=== PATIENT | male | born 1990 | race Caucasian/White ===

== ENCOUNTER 2019-09-27 19:08 | Emergency (ER) | payer BC, SELFPAY ==
--- NOTE | ~2019-09-27 | XR_ITS ---
EXAMINATION: XR abdomen/kub 1V INDICATION: Bilateral flank pain TECHNIQUE: Supine views of the abdomen were obtained on 2 radiographs. COMPARISON: CT from today FINDINGS: A 13 mm stone projects in the expected location of the right renal pelvis at the level of t he L2 transverse process. There is an 8 mm stone in the left kidney lower pole. Punctate calcificatio ns of the right kidney measure up to 3 mm. No stones are identified along the expected courses of the ureters or within the urinary bladder. The bowel gas pattern is normal. IMPRESSION: 1. 13 mm stone in the right renal pelvis. 2. Bilateral nephrolithiasis. Reviewed, dictated and finalized at location A. 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
--- NOTE | ~2019-09-27 | CT_ITS ---
EXAMINATION: CT abdomen pelvis wo con DATE: 09/27/2019 20:06 INDICATION: Right flank pain and hematuria TECHNIQUE: Computed tomography (CT) of the abdomen and pelvis was performed without intravenous contr ast. The dose-length product (DLP) was 409.05 mGy-cm. Automated exposure control and iterative recons truction technique were employed. COMPARISON: 09/12/2014 FINDINGS: The lung bases are clear. The heart size is normal. The liver, spleen, pancreas, gallbladde r, and adrenal glands are normal. There is a 10 mm stone in the right renal pelvis. Nonobstructing st ones in the right kidney lower pole measure up to 8 mm. There are nonobstructing stones in the left k idney which measure up to 9 mm. No pathologically enlarged abdominal or pelvic lymph nodes are identi fied. There is no free intraperitoneal gas or evidence of bowel obstruction. The appendix is normal. There is a small fat-containing umbilical hernia. IMPRESSION: 1. 10 mm stone in the right renal pelvis. 2. Bilateral nonobstructing nephrolithiasis. Reviewed, dictated and finalized at location A. [employer]OM SUPERVISOR
[2019-09-27 19:10] VITALS: BP 151/90; PULSE 80; RESP 16; TEMP 36.6; O2SAT 100
[2019-09-27 19:41] LABS: Add Urine Microscopic? YES; Appearance Urine Cloudy (Clear); Bilirubin Urine Negative (Negative); Blood Urine 3+ (Negative); Color Urine Yellow (Yellow); Glucose Urine UA Negative (Negative); Ketones Urine Negative (Negative); Leukocyte Esterase Ur Negative LEU/UL (Negative); Mucus Urine Rare /lpf; Nitrate Urine Negative (Negative); Protein Urine 1+ mg/dL (Negative); RBC Urine >75 /hpf (0-2); Specific Grav Ur 1.023 (1.001-1.035); Urobilinogen Urine Negative mg/dL (<2.0)
--- NOTE | 2019-09-27 19:52 | ED.MALEGU ---
HPI - Male Genitourinary General Chief complaint: Urogenital-Male Stated complaint: hematuria Time Seen by Provider: 09/27/19 19:49 Source: patient and RN notes reviewed Mode of arrival: ambulatory Limitations: no limitations History of Present Illness HPI Narrative: Pt is a 29 y/o male presenting to the ED c/o hematuria. Pt reports he has been experiencing hematuria intermittently since last Thursday (09/23). Pt denies there being clots present in his urine, and states it ranges from dark red to pink. Pt also reports rt sided abdominal pain, but denies fever, chills, testicular pain, or N/V. Pt notes he has a Hx of kidney stones requiring urethral stent x2. Pt notes he was seen by a Urologist at this facility when he last had a stone in 2013. Pt denies any other medical problems. Pt states he took Ibuprofen earlier today. Onset (ago): day(s) (4) Duration: intermittent Associated symptoms: Reports other (Rt sided abdominal pain) Related Data Allergies Allergy/AdvReac Type Severity Reaction Status Date / Time No Known Allergies Allergy Verified 09/27/19 19:50 Review of Systems Review of Systems: All systems reviewed & are unremarkable except as noted in HPI and below Constitutional: Constitutional: Denies chills and Denies fever(s) Gastrointestinal: Gastrointestinal: Reports abdominal pain (Rt sided), Denies nausea and Denies vomiting Genitourinary: Genitourinary: Reports hematuria and Denies testicular pain PMFSH Past Medical History Medical History Kidney stone Surgical History Surgical History History of urethral stent x2 Social History Social History Smoking status: Unknown if ever smoked Gender identity (if verbalized by the patient): Male Exam Narrative: Exam Narrative: GENERAL: Well-appearing, well-nourished, and in no acute distress. HEAD: Normocephalic, atraumatic EYES: PERRLA and EOMI, conjunctiva clear without discharge THROAT:Mucous membranes moist, Oropharynx normal without erythema, exudate, peritonsillar swelling or fluctuance NECK: Supple, without lymphadenopathy or mass RESPIRATORY: No respiratory distress, Airway patent, Respirations non-labored, Clear to auscultation without rales, rhonchi or wheeze HEART: Regular rate and rhythm. No murmur heard. Normal peripheral pulses. ABDOMEN: Soft, TTP RLQ, nondistended, normal active bowel sounds. No masses. No rebound or guarding, No organomegaly. right CVA tenderness EXTREMITIES: No edema, normal strength with full range of motion. SKIN: Warm, dry, normal color without rash NEURO: Alert and oriented x3. CN 2-12 grossly intact. No focal deficits. PSYCH: Normal mood and affect. Course Reevaluation(s) Reevaluation #1: Patient states his pain is much better. I discussed with him option to stay for admission for possible intervention tomorrow for his pain. Patient states he would prefer to follow up as outpatient. Date: 09/27/19 Time: 23:49 Consultations Consultation #1: Discussed case with Urologist Dr. Ac. If needs to be admitted will accept into his service. Safe for discharge. Follow up as outpatient. Date: 09/27/19 Time: 23:06 Vital Signs Vital signs: Vital Signs Temperature 97.8 F 09/27/19 19:10 Pulse Rate 80 09/27/19 19:10 Respiratory Rate 16 09/27/19 19:10 Blood Pressure 151/90 H 09/27/19 19:10 Pulse Oximetry 100 09/27/19 19:10 Temperature 97.8 F 09/27/19 19:10 Pulse Rate 73 09/28/19 00:14 Respiratory Rate 17 09/28/19 00:14 Blood Pressure 141/88 H 09/28/19 00:14 Pulse Oximetry 98 09/28/19 00:14 MDM - Male Genitourinary Lab Data Result diagrams: 09/27/19 20:27 09/27/19 20:46 Labs: Lab Results 09/27/19 09/27/19 09/27/19 Range/Units 19:18 20:27 20:46 WBC 8.7 (4.5-10.0) K/mm3 RBC 4.37 L (4.6-6.20) M/mm3 Hgb 13
[2019-09-27] MEDS: LACTATED RINGERS 1,000 ML 999 ML IV CONT (20:20)
[2019-09-27 20:33] LABS: Basophils Absolute Auto 0.1 K/mm3 (0.0-0.1); Basophils Percent Auto 0.8 % (0.2-1.2); Eosinophils Absolute Auto 0.2 K/mm3 (0-0.3); Eosinophils Percent Auto 2.3 % (0-4.4); Hematocrit 40.9 % (42.0-52.0); Hemoglobin 13.8 g/dL (14.0-18.0); Immature Granulocyte Absolute 0.02 K/mm3 (0.00-0.031); Immature Granulocyte Percent A 0.2 % (0-0.5); Lymphocytes Absolute Auto 2.52 K/mm3 (0.9-3.2); Mean Corpuscular HGB Conc 33.7 g/dl (32-36); Mean Corpuscular Hemoglobin 31.6 pg (26-34); Mean Corpuscular Volume 93.6 fl (80-100); Mean Platelet Volume 9.9 fl (7.4-10.4); Neutrophils Absolute Auto 4.9 K/mm3 (1.3-6.7); Neutrophils Percent Auto 56.7 % (45.5-73.1); Platelet Count Result 295 k/mm3 (150-375); Red Blood Count 4.37 M/mm3 (4.6-6.20); Red Cell Distribution Width 11.7 % (11.5-14.5); White Blood Count 8.7 K/mm3 (4.5-10.0)
[2019-09-27 21:11] LABS: Alanine Aminotransferase 29 U/L (4-50); Alkaline Phosphatase 49 U/L (38-126); Aspartate Amino Transferase 31 U/L (17-59); Bilirubin,Total 0.2 mg/dL (0.2-1.3); Blood Urea Nitrogen 27 mg/dL (9-20); Calcium 8.7 mg/dL (8.4-10.2); Carbon Dioxide 24 mmol/L (22-30); Chloride 107 mmol/L (98-107); Estimated CRCL calculation 102 ml/min; Estimated Glomerular Filt Rate > 60; Glucose 91 mg/dL (75-110); Potassium 4.2 mmol/L (3.4-5.0); Sodium 139 mmol/L (137-145)
[2019-09-27] MEDS: ONDANSETRON INJ 4 MG/2 ML VIAL IV PUSH (21:15)
[2019-09-27] MEDS: HYDROMORPHONE HCL 1 MG/ML INJ IV PUSH ×2 (21:15→22:25)
[2019-09-28 00:14] VITALS: BP 141/88; PULSE 73; RESP 17; O2SAT 98
== END 2019-09-28 00:20 | disposition home or self-care (01) ==
PROVIDERS: Emergency Medicine; Emergency Provider General Practice
DX: N20.2 Calculus of kidney with calculus of ureter (principal); R31.29 Other microscopic hematuria; Z87.442 Personal history of urinary calculi
CPT/HCPCS: 36415; 74018; 74176; 80053; 81001; 85025; 96361; 96374; 96375; 96376; 99284; J0131; J1170; J2405; J7120

== ENCOUNTER 2019-10-30 15:19 | Emergency (ER) | payer BC, SELFPAY ==
--- NOTE | ~2019-10-30 | CT_ITS ---
EXAMINATION: CT abdomen pelvis wo con DATE: 10/30/2019 15:59 INDICATION: Nephrolithiasis presenting with right flank pain. TECHNIQUE: Computed tomography (CT) of the abdomen and pelvis was performed without intravenous contr ast. Automated exposure control and iterative reconstruction technique were employed. The dose-length product was 394.26 mGy-cm. COMPARISON: 09/27/2019 FINDINGS: Lung bases are clear. Heart size normal. No pericardial or pleural effusion. Focal hepatic steatosis along the ligamentum teres. Gallbladder, spleen, pancreas and bilateral adrenal glands are normal. Mu ltiple nonobstructing renal stones in the calyces throughout the left kidney and at the mid and lower pole of the right kidney, the largest measuring up to 8 mm at a lower pole calyx of the right kidney and thin 10 mm stone at a lower pole calyx of the right kidney. No stones seen along the course of t he ureters. No hydronephrosis. Bowels including the appendix are normal. Bladder is normal. No free i ntraperitoneal gas or fluid. No pathologically enlarged abdominal or pelvic lymphadenopathy. Bones ar e unremarkable. IMPRESSION: 1. Bilateral nonobstructing nephrolithiasis at the kidneys. No hydronephrosis or stones seen along th e course of the ureters. Reviewed, dictated and finalized at location A. E FINISHER IMPRESSION: 1. Bilateral nonobstructing nephrolithiasis at the kidneys. No hydronephrosis o r stones seen along the course of the ureters.
[2019-10-30 15:28] VITALS: BP 146/89; PULSE 70; RESP 18; TEMP 36.7; O2SAT 100
--- NOTE | 2019-10-30 15:34 | ED.ABDPAIN ---
HPI - Abdominal Pain General Chief Complaint: Abdominal Pain Stated Complaint: kidney stones Time Seen by Provider: 10/30/19 15:23 Source: patient Mode of arrival: ambulatory Limitations: no limitations History of Present Illness HPI narrative: Patient is a 29-year-old male who presents with history of kidney stones noting left-sided flank pain with history of kidney stones noting that he has had pain to the left flank described as a sharp aching pain worse with activity and movement has passed 2 stones Related Data Home Medications Medication Instructions Recorded Confirmed sulfamethoxazole-trimethoprim See Rx Instructions .ROUTE .COMPLEX 10/07/19 10/07/19 Allergies Allergy/AdvReac Type Severity Reaction Status Date / Time No Known Allergies Allergy Verified 10/30/19 15:43 [facility] Past Medical History Medical History (Updated 10/30/19 @ 16:42 by David Ramirez PA-C) Anxiety Kidney stone Social History Social History Smoking status: Unknown if ever smoked Gender identity (if verbalized by the patient): Male Course Course Emergency Course: Patient in the room at this time in no distress aware of case findings treatment plan and diagnosis agreeing to follow-up as directed or to return if symptoms worsen or concerns Vital Signs Vital signs: Vital Signs Temperature 98.1 F 10/30/19 15:28 Pulse Rate 70 10/30/19 15:28 Respiratory Rate 18 10/30/19 15:28 Blood Pressure 146/89 H 10/30/19 15:28 Pulse Oximetry 100 10/30/19 15:28 Temperature 98.1 F 10/30/19 15:28 Pulse Rate 70 10/30/19 15:28 Respiratory Rate 18 10/30/19 15:28 Blood Pressure 146/89 H 10/30/19 15:28 Pulse Oximetry 100 10/30/19 15:28 MDM - Abdominal Pain MDM Narrative Medical decision making narrative: Patient in the room in no distress aware of case findings treatment plan and diagnosis agreeing to follow-up as directed or to return if symptoms worsen will likely pass urolithiasis no high risk changes in the blood work or imaging afebrile nontoxic-appearing without emesis Imaging Data Radiologist's impression: ITS Impressions Abdomen/Pelvis CT 10/30/19 16:06 IMPRESSION: 1. Bilateral nonobstructing nephrolithiasis at the kidneys. No hydronephrosis or stones seen along the course of the ureters. Discharge Plan Discharge Clinical Impression: Kidney stone Patient Disposition: Home, Self-Care Condition: Stable Instructions: Antibiotic Form, Kidney Stones (ED) Prescriptions: New ketorolac 10 mg tablet 10 mg PO Q8H PRN (Reason: pain) Qty: 7 RF: 0 ondansetron HCl [Zofran] 4 mg tablet 4 mg PO Q8H PRN (Reason: nausea and vomiting) Qty: 7 RF: 0 No Action tamsulosin 0.4 mg capsule 0.4 mg PO DAILY Qty: 7 RF: 0 oxycodone-acetaminophen 5-325 mg tablet 1 tablet PO Q6H PRN (Reason: pain) Qty: 14 RF: 0 ondansetron 4 mg tablet,disintegrating 4 mg PO Q6H PRN (Reason: nausea and vomiting) Qty: 10 RF: 0 sulfamethoxazole-trimethoprim 800-160 mg tablet See Rx Instructions .ROUTE .COMPLEX RF: 0 hydrocodone-acetaminophen 5-325 mg tablet 1 - 2 tablet PO Q6H PRN (Reason: pain) Qty: 20 RF: 0 sulfamethoxazole-trimethoprim 800-160 mg tablet 1 tablet PO Q12H Qty: 6 RF: 0 Follow-up/Referrals: Sanya Cox MD [Primary Care Provider] -
[2019-10-30 15:39] LABS: Basophils Absolute Auto 0.1 K/mm3 (0.0-0.1); Basophils Percent Auto 1.2 % (0.2-1.2); Eosinophils Absolute Auto 0.2 K/mm3 (0-0.3); Eosinophils Percent Auto 3.3 % (0-4.4); Hematocrit 43.5 % (42.0-52.0); Hemoglobin 14.7 g/dL (14.0-18.0); Immature Granulocyte Absolute 0.01 K/mm3 (0.00-0.031); Immature Granulocyte Percent A 0.2 % (0-0.5); Lymphocytes Absolute Auto 2.14 K/mm3 (0.9-3.2); Lymphocytes Percent Auto 41.6 % (18.3-44.2); Mean Corpuscular HGB Conc 33.8 g/dl (32-36); Mean Corpuscular Hemoglobin 31.5 pg (26-34); Mean Corpuscular Volume 93.3 fl (80-100); Monocytes Absolute Auto 0.8 K/mm3 (0.1-0.6); Monocytes Percent Auto 15.5 % (2.6-8.5); Neutrophils Percent Auto 38.2 % (45.5-73.1); Platelet Count Result 332 k/mm3 (150-375); Red Blood Count 4.66 M/mm3 (4.6-6.20); White Blood Count 5.2 K/mm3 (4.5-10.0)
[2019-10-30] MEDS: ONDANSETRON INJ 4 MG/2 ML VIAL IV PUSH (15:41)
[2019-10-30] MEDS: FAMOTIDINE 20 MG/2 ML VIAL IV PUSH (15:41)
[2019-10-30] MEDS: SODIUM CHLORIDE 0.9% IV 1,000 ML 999 ML IV CONT (15:41)
[2019-10-30 15:53] LABS: Add Urine Microscopic? YES; Appearance Urine Clear (Clear); Bilirubin Urine Negative (Negative); Blood Urine Negative (Negative); Color Urine Yellow (Yellow); Glucose Urine UA Negative (Negative); Ketones Urine Negative (Negative); Leukocyte Esterase Ur Trace LEU/UL (Negative); Mucus Urine Rare /lpf; Nitrate Urine Negative (Negative); Protein Urine Negative (Negative); Specific Grav Ur 1.016 (1.001-1.035); Squamous Epithelial Cell Urine Rare /hpf (Few); Urobilinogen Urine Negative mg/dL (<2.0); WBC Urine 0-3 /hpf
[2019-10-30 16:22] VITALS: TEMP 36.7
[2019-10-30] MEDS: KETOROLAC 30 MG/ML VIAL (*BKC) IV PUSH (16:26)
[2019-10-30 16:28] LABS: Blood Urea Nitrogen 10 mg/dL (9-20); Calcium 9.3 mg/dL (8.4-10.2); Carbon Dioxide 26 mmol/L (22-30); Chloride 103 mmol/L (98-107); Estimated CRCL calculation 140 ml/min; Estimated Glomerular Filt Rate > 60; Glucose 94 mg/dL (75-110); Potassium 4.2 mmol/L (3.4-5.0); Sodium 138 mmol/L (137-145)
--- NOTE | 2019-11-05 07:45 | PC.NURSE ---
LATE ENTRY This note is being entered to document information to the patient's record. The following information was omitted on 10/30/2019, NS 1 LITER ADMINISTERED AND STOPPED AT 1645.
== END 2019-10-30 17:09 | disposition home or self-care (01) ==
PROVIDERS: Emergency Medicine; Emergency Provider Emergency Medicine; PCP Urology
DX: N20.0 Calculus of kidney (principal); Z87.442 Personal history of urinary calculi
CPT/HCPCS: 36415; 74176; 80048; 81001; 85025; 96365; 96375; 99284; J0131; J1885; J2405; J7030

== ENCOUNTER 2020-07-30 16:02 | Outpatient (CLI) | payer BC, SELFPAY ==
--- NOTE | ~2020-07-30 | XR_ITS ---
EXAMINATION: XR foot RT min 3V EXAM DATE: 07/30/2020 16:26 INDICATION: Plantar Fasciitis Rt Foot, pain In Heel For 6 Months, no Injury . TECHNIQUE: Right foot dorsoplantar, lateral and oblique projections obtained and reviewed. There is no prior study for comparison. FINDINGS: Right metatarsal bones unremarkable. Joint spaces are maintained. There are no acute frac tures or dislocations identified. There is no subcutaneous gas. The soft tissue is unremarkable. There are no radiopaque foreign bodies. IMPRESSION: 1. Unremarkable right foot exam. Reviewed, dictated and finalized at location A.
== END 2020-07-30 16:03 | disposition home or self-care (01) ==
PROVIDERS: PCP Urology; Visit Provider Podiatrist Foot & Ankle Surgery
DX: M72.2 Plantar fascial fibromatosis (principal)
CPT/HCPCS: 73630

== ENCOUNTER 2020-08-27 17:53 | Emergency (ER) | payer BC, SELFPAY ==
[2020-08-27 18:00] VITALS: BP 157/79; PULSE 83; RESP 18; TEMP 36.9; O2SAT 99
--- NOTE | 2020-08-27 18:12 | ED.SKABFB ---
HPI - Skin/Abscess/Foreign Bdy General Chief complaint: Skin/Abscess/Foreign Body Stated complaint: poison joel Time Seen by Provider: 08/27/20 18:12 Source: patient and RN notes reviewed Mode of arrival: ambulatory Limitations: no limitations History of Present Illness HPI narrative: 29-year-old male presents with concern for poison joel on his testicles. Reports he was climbing a tree with cathleen while hunting. Reports he then noticed a rash that is itchy, irritating, red. Reports he has been using [id number] products with occasional temporary relief. He denies swollen lips, swollen tongue, difficulty breathing, nausea, vomiting, diarrhea. MD complaint: rash Related Data Allergies Allergy/AdvReac Type Severity Reaction Status Date / Time No Known Allergies Allergy Verified 08/27/20 18:20 Review of Systems Review of Systems: Narrative: CONSTITUTIONAL: Denies malaise, chills, sweats, or fever. ENT: Denies rhinorrhea, congestion, polyps, swollen tongue CARDIOVASCULAR: Denies chest pain, palpitations, or edema. RESPIRATORY: Denies cough or dyspnea. GASTROINTESTINAL: Denies abdominal pain, nausea, vomiting, diarrhea GENITOURINARY: Denies dysuria or hematuria. SKIN: Reports red itchy rash on testicles and penis MUSCULOSKELETAL: Denies myalgia. All systems reviewed & are unremarkable except as noted in HPI and below PMFSH Past Medical History Medical History (Updated 08/27/20 @ 18:26 by Zhanna Lozada NP) Anxiety Kidney stone Surgical History Surgical History History of urethral stent x2 Social History Social History Smoking status: Unknown if ever smoked Gender identity (if verbalized by the patient): Male Comments At time of signature, agree with nursing past medical, surgical, social and family history. There is no relevant family history pertinent to the presenting complaint Exam Narrative: Exam Narrative: GENERAL: Well-appearing, well-nourished, and in no acute distress. HEAD: Normocephalic, atraumatic. EYES: PERRLA, conjunctivae clear, and EOMI. ENT: Mucous membranes moist. Oropharynx without edema, erythema or lesions. NECK: Supple. No lymphadenopathy CHEST: Clear to auscultation. No respiratory distress. HEART: Regular rate and rhythm. SKIN: Warm, dry. Erythematous papular on scrotum and penis NEURO: Alert and oriented x3. PSYCH: Normal mood and affect Course Course Emergency Course: Patient is aware of diagnosis, understands and agrees to treatment plan. Anticipatory guidance given. Patient agrees to follow-up as directed and is aware of reasons to seek care at the emergency department. Portions of this record may have been created with voice recognition software Vital Signs Vital signs: Vital Signs Temperature 98.5 F 08/27/20 18:00 Pulse Rate 83 08/27/20 18:00 Respiratory Rate 18 08/27/20 18:00 Blood Pressure 157/79 H 08/27/20 18:00 Pulse Oximetry 99 08/27/20 18:00 Temperature 98.5 F 08/27/20 18:00 Pulse Rate 83 08/27/20 18:00 Respiratory Rate 18 08/27/20 18:00 Blood Pressure 157/79 H 08/27/20 18:00 Pulse Oximetry 99 08/27/20 18:00 Reviewed. MDM - Skin/Abscess/Foreign Bdy MDM Narrative Medical decision making narrative: Does not appear at this time to be erythema multiforme, bullous, SJS, TEN; no evidence at this time to suggest RMSF, endocarditis or Lyme disease; patient looks well, nontoxic and is tolerating oral intake; no neurologic signs or symptoms; no headache, photophobia or neck pain; afebrile; appropriate for initial outpatient treatment; discussed the importance of follow-up, patient agrees; question, viral exanthema, contact dermatitis, allergic dermatitis, eczema, urticaria, shingles. No soft palate or uvula edema, no tongue, lip edema or other mucosal involvement, no respiratory compromise, no stridor, no wheezing, no wh
== END 2020-08-27 18:30 | disposition home or self-care (01) ==
PROVIDERS: Emergency Provider Nurse Practitioner
DX: L24.7 Irritant contact dermatitis due to plants, except food (principal)
CPT/HCPCS: 99213; G0463

== ENCOUNTER 2022-02-16 15:13 | Emergency (ER) | payer BC, SELFPAY ==
--- NOTE | ~2022-02-16 | XR_ITS ---
EXAM: XR abdomen/kub 1V HISTORY: flank pain x6days, vomiting,hx kidney stones,voiding freq. COMPARISON: 10/07/2019. FINDINGS: Clear lung bases. Paucity of bowel gas, otherwise normal bowel gas pattern. No organomegal y. Nephrolithiasis. Left renal calyx calcifications are stable. A large right renal calcification luke ntified in the prior study is not longer seen and may have passed. Regional bones and soft tissues no rmal for age. IMPRESSION: Paucity of bowel gas limits interpretation for obstruction or ileus. Nephrolithiasis. Reviewed, dictated and finalized at location [facility]. IMPRESSION: Paucity of bowel gas limits interpretation for obstruction or ileus. Nephrolith iasis.
[2022-02-16 15:16] VITALS: BP 167/94; PULSE 107; RESP 16; TEMP 36.5; O2SAT 100
[2022-02-16] MEDS: ONDANSETRON INJ 4 MG/2 ML VIAL IV PUSH (15:42)
[2022-02-16] MEDS: SODIUM CHLORIDE 0.9% IV 1,000 ML 999 ML IV CONT (15:42)
[2022-02-16] MEDS: MORPHINE SULFATE (*CRX) 4 MG/ML INJ 2 MG IV PUSH (15:42)
[2022-02-16 15:45] LABS: Basophils Absolute Auto 0.1 K/mm3 (0.0-0.1); Basophils Percent Auto 1.2 % (0.2-1.2); Eosinophils Absolute Auto 0.2 K/mm3 (0-0.3); Eosinophils Percent Auto 2.6 % (0-4.4); Hematocrit 44.6 % (42.0-52.0); Hemoglobin 15.2 g/dL (14.0-18.0); Immature Granulocyte Absolute 0.02 K/mm3 (0.00-0.031); Immature Granulocyte Percent A 0.2 % (0-0.5); Lymphocytes Absolute Auto 2.97 K/mm3 (0.9-3.2); Lymphocytes Percent Auto 36.5 % (18.3-44.2); Mean Corpuscular HGB Conc 34.1 g/dl (32-36); Mean Corpuscular Hemoglobin 31.1 pg (26-34); Mean Corpuscular Volume 91.4 fl (80-100); Mean Platelet Volume 9.6 fl (7.4-10.4); Monocytes Absolute Auto 0.6 K/mm3 (0.1-0.6); Monocytes Percent Auto 7.7 % (2.6-8.5); Neutrophils Absolute Auto 4.2 K/mm3 (1.3-6.7); Neutrophils Percent Auto 51.8 % (45.5-73.1); Platelet Count Result 293 k/mm3 (150-375); Red Blood Count 4.88 M/mm3 (4.6-6.20); Red Cell Distribution Width 11.8 % (11.5-14.5); White Blood Count 8.1 K/mm3 (4.5-10.0)
[2022-02-16 15:54] LABS: Appearance Urine Clear (Clear); Bilirubin Urine Negative (Negative); Blood Urine Negative (Negative); Color Urine Yellow (Yellow); Glucose Urine UA Negative (Negative); Ketones Urine Negative (Negative); Leukocyte Esterase Ur Negative LEU/UL (Negative); Nitrate Urine Negative (Negative); Protein Urine Negative (Negative); Specific Grav Ur >= 1.030 (1.001-1.035); Urobilinogen Urine 0.2 mg/dL (<2.0)
[2022-02-16 15:56] LABS: Add Urine Microscopic? NO
[2022-02-16 15:58] LABS: Alanine Aminotransferase 42 U/L (6-50); Albumin Level 4.8 g/dL (3.5-5.1); Alkaline Phosphatase 80 U/L (38-126); Anion Gap 9 mmol/L (8-16); Aspartate Amino Transferase 30 U/L (17-59); Bilirubin,Total 0.5 mg/dL (0.2-1.3); Blood Urea Nitrogen 15 mg/dL (9-20); Calcium 9.4 mg/dL (8.4-10.2); Carbon Dioxide 22 mmol/L (22-30); Chloride 106 mmol/L (98-107); Estimated CRCL calculation 132 ml/min; Estimated Glomerular Filt Rate > 60; Glucose 128 mg/dL (65-110); Lipase 72 U/L (23-300); Potassium 3.7 mmol/L (3.4-5.0); Sodium 137 mmol/L (137-145)
--- NOTE | 2022-02-16 16:07 | ED.ABDPAIN ---
HPI - Abdominal Pain General Chief Complaint: Abdominal Pain Stated Complaint: r flank pain Time Seen by Provider: 02/16/22 15:32 Source: patient Mode of arrival: ambulatory History of Present Illness HPI narrative: 31-year-old male presents today with complaints of right flank pain that started on Thursday and started getting worse on . Patient with history of kidney stones. Patient states he had thought he passed a stone but the pain today was intolerable so he came here. Patient endorses dysuria, urinary frequency, nausea with vomiting when the pain is high. Patient denies fever, body aches, chills. Related Data Allergies Allergy/AdvReac Type Severity Reaction Status Date / Time No Known Allergies Allergy Verified 02/16/22 15:20 Review of Systems Review of Systems: CONSTITUTIONAL: Denies fever, chills, or sweats. EYES: Denies visual changes, redness, or discharge. ENT: Denies rhinorrhea, congestion, sore throat, or otalgia. CARDIOVASCULAR: Denies chest pain, palpitations, or edema. RESPIRATORY: Denies cough or dyspnea. GASTROINTESTINAL: Denies abdominal pain, nausea, vomiting, or diarrhea. GENITOURINARY: Right flank pain, dysuria, urinary frequency. Denies hematuria. SKIN: Denies rash or itching. MUSCULOSKELETAL: Denies back pain, joint pain, or myalgia. NEUROLOGIC: Denies headache, numbness, dizziness, or weakness. PSYCHIATRIC: Denies anxiety or depression. PMFSH Past Medical History Medical History Anxiety Kidney stone Surgical History Surgical History History of urethral stent x2 Social History Social History Smoking status: Unknown if ever smoked Gender identity (if verbalized by the patient): Male Exam Narrative: GENERAL: Well-appearing, well-nourished, and in no acute distress. HEAD: Normocephalic, atraumatic. EYES: PERRLA and EOMI. ENT: Nares clear, no rhinorrhea or epistaxis. Mucous membranes moist. Oropharynx without tonsillar hypertrophy exudate or other lesions. Bilateral TMs pearly hannah nonbulging NECK: Supple. No adenopathy or masses. No carotid bruits or JVD CHEST: Clear to auscultation. No respiratory distress. No wheezes rales or rhonchi HEART: Regular rate and rhythm. No murmur heard. Normal peripheral pulses. ABDOMEN: Soft, nontender, nondistended, normal active bowel sounds. EXTREMITIES: Normal range of motion. No edema. SKIN: Warm, dry, no rash. NEURO: No focal deficits. Alert and oriented x3. PSYCH: Normal mood and affect. Course Course Emergency Course: [address] at this time. Requesting just x-ray. Xray shows Left renal calyx calcifications are stable. A large right renal calcification identified in the prior study is not longer seen and may have passed. Paucity of bowel gas limits interpretation for obstruction or ileus. Patient with BM this am normal for him and only with nausea with pain. Pain currently 4/10 to right flank/buttock. Urine without blood. Patient now endorsing pain is worse with sitting and is better when standing. Patient denies history of back problems or recent trauma. Reviewed labs and imaging with patient and . Patient to be discharged with follow-up with primary in 3 days for further management. All questions answered. All in agreement with plan of care. Vital Signs Vital signs: Vital Signs Temperature 36.5 C 02/16/22 15:16 Pulse Rate 107 H 02/16/22 15:16 Respiratory Rate 16 02/16/22 15:16 Blood Pressure 167/94 H 02/16/22 15:16 Pulse Oximetry 100 02/16/22 15:16 Temperature 36.5 C 02/16/22 15:16 Pulse Rate 107 H 02/16/22 15:16 Respiratory Rate 16 02/16/22 15:16 Blood Pressure 167/94 H 02/16/22 15:16 Pulse Oximetry 100 02/16/22 15:16 MDM - Abdominal Pain MDM Narrative Medical decision making narrative: HPI as
[2022-02-16] MEDS: KETOROLAC 30 MG/ML VIAL (*BKC) IV PUSH (17:24)
[2022-02-16 17:52] VITALS: BP 143/75; PULSE 71; RESP 18; O2SAT 98
== END 2022-02-16 17:54 | disposition home or self-care (01) ==
PROVIDERS: Emergency Medicine; Emergency Provider Nurse Practitioner Family
DX: M54.50 Low back pain, unspecified (principal); Z87.442 Personal history of urinary calculi; N20.0 Calculus of kidney
CPT/HCPCS: 36415; 74018; 80053; 81003; 83690; 85025; 96361; 96374; 96375; 99284; J1885; J2270; J2405; J7030

== ENCOUNTER 2022-06-01 12:18 | Emergency (ER) | payer BC, SELFPAY ==
[2022-06-01 12:31] VITALS: BP 145/85; PULSE 72; RESP 16; TEMP 36.7; O2SAT 100
--- NOTE | 2022-06-01 13:27 | ED.EXTPRO ---
HPI - Extremity Problem General Chief complaint: Extremity Problem,Nontraumatic Stated complaint: Pain in elbows and forearms Time Seen by Provider: 06/01/22 13:28 Source: patient, RN notes reviewed and old records reviewed Mode of arrival: ambulatory Limitations: no limitations History of Present Illness HPI Narrative: 31-year-old male who presents to [facility] care with complaints of intermittent bilateral elbow pain with pain to lateral inner forearm with some tingling to fingers at times. 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 Patient denies any tingling or numbness to his fingers at this time with strong radial pulses to bilateral arms. Patient denies any forearm pain when pressure applied around ulnar nerve sites at elbows, states warmth sensation to hands when tapping on inner wrist areas. Reports no trauma to elbows or forearms known. MD Complaint: other (intermittent pain to elbows and inner lateral forearms) Pain Consistency: intermittent Location: elbow and other (lateral forearms) Severity scale (1-10): 3 Related Data Allergies Allergy/AdvReac Type Severity Reaction Status Date / Time No Known Allergies Allergy Verified 06/01/22 13:00 Review of Systems Review of Systems: CONSTITUTIONAL: Denies fever, chills, or sweats. EYES: Denies visual changes, redness, or discharge. ENT: Denies rhinorrhea, congestion, sore throat, or otalgia. CARDIOVASCULAR: Denies chest pain, palpitations, or edema. RESPIRATORY: Denies cough or dyspnea. GASTROINTESTINAL: Denies abdominal pain, nausea, vomiting, or diarrhea. GENITOURINARY: Denies dysuria or hematuria. SKIN: Denies rash or itching. MUSCULOSKELETAL: Denies back pain, positive for intermittent elbow pain radiating to lateral forearms, or myalgia. NEUROLOGIC: Denies headache, numbness, or weakness. PSYCHIATRIC: Positive for history of anxiety or depression. All systems reviewed & are unremarkable except as noted in HPI and below PMFSH Past Medical History Medical History (Updated 06/03/22 @ 08:38 by Janneth Betancur NP) Anxiety Kidney stone Wrist fracture, right Surgical History Surgical History History of urethral stent x2 Social History Social History (Updated 06/03/22 @ 08:29 by Janneth Betancur NP) Smoking status: Never smoker Alcohol intake: current Alcohol use details: social Substance use type: does not use Living arrangements: with family Gender identity (if verbalized by the patient): Male Comments At time of signature, agree with nursing past medical, surgical, social and family history. There is no relevant family history pertinent to the presenting complaint Exam Narrative: GENERAL: Well-appearing, well-nourished,obese and in no acute distress. HEAD: Normocephalic, atraumatic. EYES: PERRLA and EOMI. ENT: Nares clear, no rhinorrhea or epistaxis. Mucous membranes moist.TM's normal with good light reflex, throat pink with no tonsil swelling NECK: Supple.no lymphadenopathy CHEST: Clear to auscultation. No respiratory distress.SAO2 100% on room air HEART: Regular rate and rhythm. No murmur heard. Normal peripheral pulses. ABDOMEN: Soft, nontender, nondistended, normal active bowel sounds. EXTREMITIES: Normal range of motion. No edema.reports of bilateral elbow pain radiating to forearms laterally with occasional tingling to fingers, no present tingling or numbness to fingers. No pain with pressure at elbows along ulnar nerve area warmth to fingers elicited when tapping on inner wrists. strong radial pulses with brisk capillary refill to nail beds of both hands SKIN: Warm, dry, no rash. NEURO: No focal deficits. Alert and oriented x3. Course Course Level of Care: Express Care Visit Vital Signs Vital signs: Vital Signs Temperature 36.7 C 06/01/22 12:31 Pulse Rate 72 06/01/22 12:31 Res
[2022-06-01 13:55] VITALS: BP 131/81
== END 2022-06-01 13:55 | disposition home or self-care (01) ==
PROVIDERS: Emergency Provider Registered Nurse; PCP Family Medicine
DX: M79.632 Pain in left forearm (principal); M79.631 Pain in right forearm; M25.522 Pain in left elbow; M25.521 Pain in right elbow
CPT/HCPCS: 99213; G0463

== ENCOUNTER 2024-06-01 15:29 | Emergency (ER) | payer BC, SELFPAY ==
[2024-06-01 15:38] VITALS: BP 123/71; PULSE 65; RESP 20; TEMP 36.7; O2SAT 99
--- NOTE | 2024-06-01 16:01 | ED.ABDPAIN ---
HPI - Abdominal Pain General Chief Complaint: Abdominal Pain Stated Complaint: Abdominal Pain Time Seen by Provider: 06/01/24 16:01 Source: patient, RN notes reviewed and old records reviewed Mode of arrival: ambulatory Limitations: no limitations History of Present Illness HPI narrative: Patient presents with complaints of intermittent epigastric pain that radiates to the right side of his back. He reports pain has been present intermittently for a week or 2. He states he notices it particularly 1-2 hours after eating. He denies any nausea or vomiting. He denies any change in bowel or bladder pattern. He denies any fever, chills, sweats. He does report sensation of fullness. No other complaints today Related Data Allergies Allergy/AdvReac Type Severity Reaction Status Date / Time No Known Allergies Allergy Verified 06/01/24 15:33 Review of Systems Review of Systems: All systems reviewed & are unremarkable except as noted in HPI and below Constitutional: Constitutional: Reports no additional constitutional complaints ENT: Reports system reviewed and no additional complaints, except as documented Cardiovascular: Cardiovascular: Reports no additional cardiovascular complaints Respiratory: Respiratory: Reports no additional respiratory complaints Gastrointestinal: Gastrointestinal: Reports as per HPI, Reports no additional gastrointestinal complaints, Reports abdominal pain, Reports dyspepsia and Reports heartburn [facility] Past Medical History Medical History (Updated 06/02/24 @ 00:01 by Teodoro Mary) Anxiety Kidney stone Wrist fracture, right Surgical History Surgical History History of urethral stent x2 Social History Social History Smoking status: Never smoker Alcohol intake: current Alcohol use details: social Substance use type: does not use Living arrangements: with family Gender identity (if verbalized by the patient): Male Exam Const: General: cooperative, no acute distress, alert and awake Orientation/consciousness: oriented to person, oriented to place and oriented to time HENMT: Head: normal to inspection Resp: Effort & Inspection: normal respiratory effort and able to speak in complete sentences Auscultation: clear to auscultation bilaterally, no crackles, no rales, no rhonchi and no wheezes Cardio: Palpation: normal PMI Rate: regular rate Rhythm: regular rhythm Heart sounds: S1 normal heart sound present and S2 normal heart sound present GI: GI Palp: No abdominal tenderness, Yes Soft to palpation, No Tenderness to palpation present (GI), No Guarding due to palpation present (GI) and No Rigid due to palpation Auscultation: abnormal bowel sounds Neuro: General: oriented to person, oriented to place and oriented to time Cranial nerves: Yes CN's II-XII intact bilaterally Psych: Appearance: grossly normal Thought process: Normal thought process present Insight: Good insight present (Psych) Judgement: Good judgement present (Psych) Course Course Level of Care: Express Care Visit Vital Signs Vital signs: Vital Signs Temperature 98.1 F 06/01/24 15:38 Pulse Rate 65 06/01/24 15:38 Respiratory Rate 20 06/01/24 15:38 Blood Pressure 123/71 06/01/24 15:38 Pulse Oximetry 99 06/01/24 15:38 Oxygen Delivery Room Air 06/01/24 15:38 Temperature 98.1 F 06/01/24 15:38 Pulse Rate 65 06/01/24 15:38 Respiratory Rate 20 06/01/24 15:38 Blood Pressure 123/71 06/01/24 15:38 Pulse Oximetry 99 06/01/24 15:38 Oxygen Delivery Room Air 06/01/24 15:38 MDM - Abdominal Pain MDM Narrative Medical decision making narrative: patient with abdominal complaints that have been present intermittently for 1-2 weeks. he is nontoxic appearing, well hydrated, well nourished. Suspect gallbladder dysfunction as cause of his discomfort, symptoms n
== END 2024-06-01 16:35 | disposition home or self-care (01) ==
PROVIDERS: Emergency Provider Nurse Practitioner Family; PCP Family Medicine
DX: R10.13 Epigastric pain (principal)
CPT/HCPCS: 99213; G0463